=== PATIENT | female | born 1965 | race African-American/Black ===

== ENCOUNTER → 2016-10-09 | Outpatient (CLI) | payer OTHER ==
--- NOTE | ~2016-10-09 | MR165 ---
[facility] A Service of [facility] & [facility] RADIOLOGY TEXT RESULTS PATIENT: TIM URIAS LOCATION: [facility] : 61 UNIT #: [id number] AGE: [address]: Tony Dukes MD ORTHOPAEDIC SEX: F ORDER DR: [id number] [place] [id number] O MR#: [id number] Acc #: [id number] NAME: TIM URIAS : 1965 SEX: F STUDY DATE/TIME: 10/09/2016 16:34 UNIT: [facility] ROOM: STUDY DESCRIPTION: MR Shoulder Wo Contrast Rt Attending Physician: Tony Dukes M.D. Ordering Physician: Tony Dukes M.D. Primary Care Physician: Richardson Kapoor [facility] CENTER REPORT This report is preliminary unless electronic signature is present. EXAM Right shoulder MRI without contrast, 10/09/2016 HISTORY 50-year-old female with right shoulder pain and limited range of motion for over 1 year. History of two prior right shoulder surgeries in September 2013 and September 2015. COMPARISON Right shoulder x-ray 11/28/2012. Right shoulder MRIs 12/30/2012 and 07/23/2015. TECHNIQUE Routine unenhanced multiplanar, multisequence high field MR imaging of the right shoulder was performed. FINDINGS Postsurgical changes are noted from supraspinatus tendon repair. There is mild supraspinatus and infraspinatus tendinopathy, but no evidence of a recurrent tear. Teres minor and subscapularis tendons are intact. Long biceps tendon is intact and well positioned in the bicipital groove. There is mild superior labral degeneration which is not significantly changed from prior examinations. No evidence of a displaced labral tear. Glenohumeral articular cartilage is intact. No glenohumeral effusion. Mild degenerative change of the acromioclavicular joint. Mild lateral downsloping of the acromion. No evidence of significant supraspinatus outlet impingement. No significant inflammation of subacromial/subdeltoid bursa. Bone marrow signal is within expected limits. Visualized musculature is unremarkable. STS. [facility] A Service of [facility] & [facility] RADIOLOGY TEXT RESULTS PAT[facility]: [facility] URIAS [id number] [birth year] UNIT #: [id number] AGE: [address]: Tony Dukes MD ORTHOPAEDIC SEX: F ORDER DR: IMPRESSION 1. Postoperative changes from supraspinatus tendon repair. No evidence of a recurrent rotator cuff tear. There is some mild supraspinatus and infraspinatus tendinopathy. 2. Mild superior labral degeneration, unchanged from prior exams. No evidence of a discrete labral tear. 3. Mild acromioclavicular joint arthrosis and mild lateral downsloping of the acromion. No significant supraspinatus outlet impingement. No significant inflammation of subacromial/subdeltoid bursa. Dictated by... Fuad Kovacs M.D. THIS IS AN ELECTRONICALLY VERIFIED REPORT Fuad Kovacs M.D. at 10/13/2016 9:01 AM LEILA/kev TD: 10/12/2016 10:06 JOB #: [id number] MRI CENTER REPORT Page 1 of 1
== END | disposition home or self-care (01) ==
LOC: SMRI 09:30
DX: M25.511 Pain in right shoulder (principal); M24.811 Other specific joint derangements of right shoulder, not elsewhere classified; Z98.890 Other specified postprocedural states
CPT/HCPCS: 73221